=== PATIENT | male | born 1960 | race Caucasian/White ===

== ENCOUNTER 2020-11-02 14:58 | Emergency (ER) | payer OTHER, SELFPAY ==
--- NOTE | 2020-11-02 15:01 | ED.DENTAL ---
HPI - Dental/Oral General Chief complaint: Dental/Oral Stated complaint: tooth infection Time Seen by Provider: 11/02/20 15:01 Source: patient and RN notes reviewed History of Present Illness HPI Narrative: Patient is a 60-year-old male who presents the urgent care with complaints of right upper dental pain. Patient states it started on Tuesday and he is aware that he has had some fractured teeth to the area of the mouth. Patient does have a dentist that he can follow-up with. Denies of any fever, nausea, vomiting. Patient states that he has had increased swelling on the right jaw. Patient states that he took 2 doses of his daughter's antibiotic today as well as ibuprofen. Denies of any other acute complaints. No acute distress noted. Patient aware of the plan of care. Some parts of this dictation were generated by voice recognition software and may contain typographical and/or grammatical inaccuracies. Related Data Allergies Allergy/AdvReac Type Severity Reaction Status Date / Time No Known Allergies Allergy Verified 02/20/17 08:50 Review of Systems Review of Systems: CONSTITUTIONAL: Denies fever, chills, or sweats. EYES: Denies visual changes, redness, or discharge. ENT: Denies rhinorrhea, congestion, sore throat, or otalgia. Reports of upper right dental pain and swelling CARDIOVASCULAR: Denies chest pain, palpitations, or edema. RESPIRATORY: Denies cough or dyspnea. GASTROINTESTINAL: Denies abdominal pain, nausea, vomiting, or diarrhea. GENITOURINARY: Denies dysuria or hematuria. SKIN: Denies rash or itching. MUSCULOSKELETAL: Denies back pain, joint pain, or myalgia. NEUROLOGIC: Denies headache, numbness, or weakness. All other systems reviewed are negative, except as documented in HPI. PMFSH Social History Social History Smoking status: Former smoker Smoking end date: 03/07/16 Alcohol intake: never Comments At the time of my signature, I reviewed and agree with the nursing past medical, surgical, social, and family history. There is no relevant family history pertinent to the patient complaint. Exam Narrative: GENERAL: This is a well-nourished, well-developed patient, in no apparent distress. HEAD: normocephalic, atraumatic. EYES: PERRL. Sclera clear/white. Vision is grossly intact. EARS: External ears normal NOSE: External nose normal with no obvious nasal discharge, nares without redness, no rhinorrhea. THROAT: Mucous membranes moist, posterior pharynx clear. DENTAL: Moderate erythema and edema noted to the right upper quadrant, multiple missing dentition with carious lesions. Moderate right upper facial swelling. NECK: Neck supple, non-tender without lymphadenopathy, masses or thyromegaly. CARDIOVASCULAR: Regular rate and rhythm without murmurs, gallops, or rubs. RESPIRATORY: Clear to auscultation. Breath sounds equal bilaterally. No wheezes, rales, or rhonchi. SKIN: warm, intact with no suspicious lesions or rash, good texture and turgor. NEURO: awake, alert, and oriented to person, place and time. There were no obvious focal neurologic abnormalities. EXTREMITIES: No clubbing, cyanosis, or edema. Course Vital Signs Vital signs: Vital Signs Temperature 98.1 F 11/02/20 15:08 Pulse Rate 92 11/02/20 15:08 Respiratory Rate 16 11/02/20 15:08 Blood Pressure 166/79 H 11/02/20 15:08 Pulse Oximetry 96 11/02/20 15:08 Temperature 98.1 F 11/02/20 15:08 Pulse Rate 92 11/02/20 15:08 Respiratory Rate 16 11/02/20 15:08 Blood Pressure 166/79 H 11/02/20 15:08 Pulse Oximetry 96 11/02/20 15:08 Reviewed-patient is informed that they may have pre-hypertension or hypertension based on a blood pressure reading in the department. I recommend the patient call the primary care provider listed on their discharge instructions or a physician of their choice this week to arrange follow-up for further evaluation of possible pre-hypertension or hypertension. MDM - Dental/Oral MDM Narrative
[2020-11-02 15:08] VITALS: BP 166/79; PULSE 92; RESP 16; TEMP 36.7; O2SAT 96
== END 2020-11-02 15:30 | disposition home or self-care (01) ==
PROVIDERS: Emergency Provider Nurse Practitioner Family
DX: K04.7 Periapical abscess without sinus (principal)
CPT/HCPCS: 99213; G0463

== ENCOUNTER 2021-01-17 08:01 | Emergency (ER) | payer OTHER, SELFPAY ==
[2021-01-17 08:08] VITALS: BP 161/86; PULSE 125; RESP 21; TEMP 36.1; O2SAT 96
[2021-01-17] MEDS: EPINEPHrine HCL INJ 1 MG/ML AMPUL 0.3 MG IM (08:55)
[2021-01-17] MEDS: diphenhydrAMINE HCl CAP 25 MG CAPSULE PO (08:55)
[2021-01-17] MEDS: predniSONE 20 MG TABLET 60 MG PO (08:55)
--- NOTE | 2021-01-17 10:10 | ED.ALLEREA ---
HPI - Allergic Reaction General Chief complaint: Allergic Reaction Stated complaint: allergic reaction, lip swelling Time Seen by Provider: 01/17/21 08:20 Source: patient History of Present Illness HPI narrative: Patient presents with concern for allergic reaction. Is unsure what caused the symptoms he reports he had some gluten-free meal which was new to him. He developed symptoms yesterday had a rash took Benadryl initially doing okay this morning she had continued rash and felt like his lips were swollen so he came to the ER for evaluation. He denies any shortness of breath or wheezing denies prior reactions like this before. Reports mild epigastric pain that responded to Tums denies any nausea vomiting or diarrhea Related Data Allergies Allergy/AdvReac Type Severity Reaction Status Date / Time No Known Allergies Allergy Verified 01/17/21 08:15 Review of Systems Review of Systems: CONSTITUTIONAL: Denies fever, chills, or sweats. EYES: Denies visual changes, redness, or discharge. ENT: Denies rhinorrhea, congestion, sore throat, or otalgia. Reports lip swelling CARDIOVASCULAR: Denies chest pain, palpitations, or edema. RESPIRATORY: Denies cough or dyspnea. GASTROINTESTINAL: Denies nausea, vomiting, or diarrhea. GENITOURINARY: Denies dysuria or hematuria. SKIN: Reports rash and diffuse itching MUSCULOSKELETAL: Denies back pain, joint pain, or myalgia. NEUROLOGIC: Denies headache, numbness, dizziness, or weakness. PSYCHIATRIC: Denies anxiety or depression. All systems reviewed & are unremarkable except as noted in HPI and below PMFSH Past Medical History Medical History Patient denies significant medical history Social History Social History Smoking status: Former smoker Smoking end date: 03/07/16 Alcohol intake: never Exam Narrative: GENERAL: Well-appearing, well-nourished, and in no acute distress. HEAD: Normocephalic, atraumatic. EYES: PERRLA and EOMI. ENT: Nares clear, no rhinorrhea or epistaxis. Mucous membranes moist. Mild edema on the upper and lower lips no edema in the posterior pharynx NECK: Supple. No masses. No JVD CHEST: Clear to auscultation. No respiratory distress. No wheezes rales or rhonchi HEART: Regular rate and rhythm. No murmur heard. Normal peripheral pulses. ABDOMEN: Soft, nontender, nondistended, normal active bowel sounds. EXTREMITIES: Normal range of motion. No edema. SKIN: Diffuse urticaria predominantly on the torso but also noted on the extremities NEURO: No focal deficits. Alert and oriented x3. PSYCH: Normal mood and affect. Course Reevaluation(s) Reevaluation #1: Patient reports feeling much improved feels the swelling is going down he is no longer itchy Date: 01/17/21 Time: 10:12 Vital Signs Vital signs: Vital Signs Temperature 36.1 C L 01/17/21 08:08 Pulse Rate 125 H 01/17/21 08:08 Respiratory Rate 21 H 01/17/21 08:08 Blood Pressure 161/86 H 01/17/21 08:08 Pulse Oximetry 96 01/17/21 08:08 Temperature 36.1 C L 01/17/21 08:08 Pulse Rate 86 01/17/21 10:34 Respiratory Rate 14 01/17/21 10:34 Blood Pressure 136/77 01/17/21 10:34 Pulse Oximetry 96 01/17/21 10:34 MDM - Allergic Reaction MDM Narrative Medical decision making narrative: H&P as above, vs with mild tachycardia, pt looks clinically well, exam with diffuse urticaria and edema around the lips on repeat exam urticaria still present edema around the lips that resolved, labs/img considered. symptomatic relief available as needed, patient treated with EpiPen due to lip swelling Benadryl and steroids on reevaluation pt continues to looks clinically well, reported large improvement in his symptoms suspect allergic reaction, dns airway compromise severe sepsis SJS. plan to tx/monitor as op w/ pcm f/u findings/plan discussed with pt, pt agree/comfortable with plan, return precautions given
[2021-01-17 10:34] VITALS: BP 136/77; PULSE 86; RESP 14; O2SAT 96
== END 2021-01-17 10:35 | disposition home or self-care (01) ==
PROVIDERS: Emergency Provider Emergency Medicine
DX: T78.40XA Allergy, unspecified, initial encounter (principal); Z87.891 Personal history of nicotine dependence
CPT/HCPCS: 96372; 99283; A9270; J0171; J7512

== ENCOUNTER 2021-01-22 08:06 | Emergency (ER) | payer OTHER, SELFPAY ==
[2021-01-22 08:12] VITALS: BP 172/81; PULSE 72; RESP 16; TEMP 36.7; O2SAT 98
--- NOTE | 2021-01-22 08:15 | ECG_ITS ---
Measurements Intervals [place] Rate: 69 P: 61 NV: 186 QRS: 47 QRSD: 128 T: 54 QT: 395 QTc: 424 Interpretive Statements SINUS RHYTHM INCOMPLETE RIGHT BUNDLE BRANCH BLOCK BASELINE ARTIFACT- I, III, AVR, AVL, AVF, V3 BORDERLINE ECG Electronically Signed On 01-22-2021 8:54:40 NEWS EDITOR by Jose Jimenez D.O.
[2021-01-22] MEDS: MECLIZINE HCL 25 MG TABLET PO (08:23)
--- NOTE | 2021-01-22 08:37 | PC.NURSE ---
Attempted to irrigate left ear. Ear irrigated with 60 ml saline with small amount return of ear wax. Tolerated well.
[2021-01-22 09:03] VITALS: PULSE 59; RESP 11
--- NOTE | 2021-01-22 09:10 | PC.NURSE ---
Irrigated left ear again with large return of hard lumps of ear wax. Tolerated well.
[2021-01-22 09:15] VITALS: PULSE 54; RESP 10; O2SAT 96
--- NOTE | 2021-01-22 09:18 | ED.GENADULT ---
HPI - General Adult General Chief complaint: Dizziness Stated complaint: DIZZINESS Time Seen by Provider: 01/22/21 08:13 History of Present Illness HPI narrative: Patient is a 60-year-old male who presents to the ER with dizziness. Patient reports he woke up this morning and had spinning dizziness when he would turn his head or look up and look down. If he does not move his head the symptoms cease. He has had mild nausea. Endorses decreased hearing left ear. Recently had an allergic reaction to peanuts in the ER. He has not had any additional exposure to peanuts. No difficulty breathing or swallowing. No numbness or tingling to the arms or legs. Related Data Allergies Allergy/AdvReac Type Severity Reaction Status Date / Time No Known Allergies Allergy Verified 01/22/21 08:22 Review of Systems Review of Systems: All systems reviewed & are unremarkable except as noted in HPI and below Constitutional: Constitutional: Denies chills, Denies fever(s) and Denies weakness ENT: Reports dizziness, Denies nasal congestion and Denies sore throat Cardiovascular: Cardiovascular: Denies chest pain and Denies radiating jaw, neck or arm pain Gastrointestinal: Gastrointestinal: Denies abdominal pain, Reports nausea and Denies vomiting PMFSH Past Medical History Medical History Patient denies significant medical history Social History Social History Smoking status: Former smoker Smoking end date: 03/07/16 Alcohol intake: never Exam Narrative: GENERAL: Well-appearing, well-nourished, and in no acute distress. HEAD: Normocephalic, atraumatic. EYES: PERRL and EOMI. ENT: Mucous membranes moist. Left ear canal obstructed by cerumen, cerumen also present in right ear canal but not obstructing the TM which appears normal. Left TM normal as well after removal of cerumen. CHEST: Clear to auscultation. No respiratory distress. HEART: Regular rate and rhythm. Normal peripheral pulses. EXTREMITIES: Normal range of motion. No edema. SKIN: Warm, dry, no rash. NEURO: No focal deficits. Cranial nerves II through XII intact. Alert and oriented x3. Course Course Emergency Course: Patient feels much better after meclizine and ear irrigation. Discharge home. Vital Signs Vital signs: Vital Signs Temperature 98.0 F 01/22/21 08:12 Pulse Rate 72 01/22/21 08:12 Respiratory Rate 16 01/22/21 08:12 Blood Pressure 172/81 H 01/22/21 08:12 Pulse Oximetry 98 01/22/21 08:12 Temperature 98.0 F 01/22/21 08:12 Pulse Rate 72 01/22/21 08:12 Respiratory Rate 16 01/22/21 08:12 Blood Pressure 172/81 H 01/22/21 08:12 Pulse Oximetry 98 01/22/21 08:12 Procedures Ear Wax Removal Both Ears: Ear Wax Removal Date: 01/22/21 Ear Wax Removal Time: 09:31 Cerumenolytic Used: other (Saline) Results: Re-examined: cerumen removed completely TM Examination: TM(s) intact, normal appearance Ear Canal Exam: atraumatic Patient Tolerated Procedure: well Complications: no problems Technique: ear canal irrigated and ear canal curetted Medical Decision Making Vital Signs Vital Signs: Vital Signs Temperature 98.0 F 01/22/21 08:12 Pulse Rate 72 01/22/21 08:12 Respiratory Rate 16 01/22/21 08:12 Blood Pressure 172/81 H 01/22/21 08:12 Pulse Oximetry 98 01/22/21 08:12 Temperature 98.0 F 01/22/21 08:12 Pulse Rate 72 01/22/21 08:12 Respiratory Rate 16 01/22/21 08:12 Blood Pressure 172/81 H 01/22/21 08:12 Pulse Oximetry 98 01/22/21 08:12 Discharge Plan Discharge Clinical Impression: Impacted cerumen of left ear, Vertigo Patient Disposition: Home, Self-Care Condition: Stable Instructions: Carbamide Peroxide (Into the ear), Vertigo (ED) Additional Instructions: Return the ER if you have focal weakness in arm or leg, yo
[2021-01-22 09:44] VITALS: BP 156/80; PULSE 60; RESP 16; O2SAT 96
== END 2021-01-22 09:47 | disposition home or self-care (01) ==
PROVIDERS: Emergency Provider Emergency Medicine
DX: H61.22 Impacted cerumen, left ear (principal); R42 Dizziness and giddiness; Z87.891 Personal history of nicotine dependence
CPT/HCPCS: 69210; 93005; 99283; A9270

== ENCOUNTER 2021-07-29 08:40 | Emergency (ER) | payer OTHER, SELFPAY ==
[2021-07-29] VITALS (14 sets, daily range): BP systolic 124–151; BP diastolic 72–98; PULSE 98; RESP 16; TEMP 36.8–37; O2SAT 93–96
--- NOTE | ~2021-07-29 | XR_ITS ---
EXAMINATION: XR chest 1V portable DATE: 07/29/2021 10:43 INDICATION: Shortness of breath. TECHNIQUE: A single frontal view of the chest was obtained on 2 radiographs. COMPARISON: None. FINDINGS: The chest demonstrates clear lungs without pneumonia, pleural effusion, or pneumothorax. Th e heart size is normal. There are prominent paracardial fat pads. IMPRESSION: 1. No acute cardiopulmonary disease. Reviewed, dictated and finalized at location A.
--- NOTE | 2021-07-29 09:03 | PC.NURSE ---
pt unable to provide urine sample at this time. pt declining straight cath. will check back for urine sample.
[2021-07-29 09:06] LABS: Basophils Percent Auto 0.2 % (0.2-1.2); Hematocrit 43.3 % (42.0-52.0); Hemoglobin 14.5 g/dL (14.0-18.0); Immature Granulocyte Absolute 0.01 K/mm3 (0.00-0.031); Immature Granulocyte Percent A 0.2 % (0-0.5); Lymphocytes Absolute Auto 1.12 K/mm3 (0.9-3.2); Lymphocytes Percent Auto 19.8 % (18.3-44.2); Mean Corpuscular HGB Conc 33.5 g/dl (32-36); Mean Corpuscular Hemoglobin 32.4 pg (26-34); Mean Corpuscular Volume 96.9 fl (80-100); Mean Platelet Volume 11.2 fl (7.4-10.4); Monocytes Absolute Auto 0.9 K/mm3 (0.1-0.6); Monocytes Percent Auto 15.2 % (2.6-8.5); Neutrophils Absolute Auto 3.7 K/mm3 (1.3-6.7); Neutrophils Percent Auto 64.6 % (45.5-73.1); Platelet Count Result 159 k/mm3 (150-375); Red Blood Count 4.47 M/mm3 (4.6-6.20); Red Cell Distribution Width 13.2 % (11.5-14.5); White Blood Count 5.7 K/mm3 (4.5-10.0)
[2021-07-29 09:17] LABS: Alanine Aminotransferase 16 U/L (6-50); Alkaline Phosphatase 95 U/L (38-126); Anion Gap 9 mmol/L (8-16); Aspartate Amino Transferase 34 U/L (17-59); Bilirubin,Total 0.5 mg/dL (0.2-1.3); Blood Urea Nitrogen 10 mg/dL (9-20); Calcium 7.9 mg/dL (8.4-10.2); Carbon Dioxide 22 mmol/L (22-30); Chloride 103 mmol/L (98-107); Estimated CRCL calculation 82 ml/min; Estimated Glomerular Filt Rate > 60; Glucose 284 mg/dL (65-110); Potassium 3.2 mmol/L (3.4-5.0); Sodium 134 mmol/L (137-145)
[2021-07-29 09:43] LABS: Influenza A QL RT-PCR Negative (Negative); Influenza B QL RT-PCR Negative (Negative); SARS-CoV-2 RNA PCR Positive
--- NOTE | 2021-07-29 10:30 | PC.NURSE ---
pt still unable to provide urine sample at this time.
--- NOTE | 2021-07-29 10:54 | ED.FEVER ---
HPI - Fever General Chief Complaint: Fever Stated Complaint: fever, ST, diarrhea Time Seen by Provider: 07/29/21 08:53 Source: patient Mode of arrival: ambulatory Limitations: no limitations History of Present Illness HPI Narrative: 61-year-old otherwise healthy here with complaints of cold ,cough, fever for past 2 days. Patient states that he was taking care of his grandkids to have cold symptoms. He states he has occasional cough. He denies any chest pain, shortness of breath. Has occasional upper abdominal pain when coughing. He denies nausea, vomiting or diarrhea. He states he is not vaccinated against COVID. Related Data Allergies Allergy/AdvReac Type Severity Reaction Status Date / Time No Known Allergies Allergy Verified 07/29/21 08:49 Review of Systems Review of Systems: All systems reviewed & are unremarkable except as noted in HPI and below Constitutional: Constitutional: Reports no additional constitutional complaints Eyes: Eyes: Reports no additional eye complaints ENT: Reports nasal congestion Cardiovascular: Cardiovascular: Reports no additional cardiovascular complaints Respiratory: Respiratory: Reports cough Gastrointestinal: Gastrointestinal: Reports no additional gastrointestinal complaints Musculoskeletal: Musculoskeletal: Reports no additional musculoskeletal complaints Integumentary/Breasts: Skin/Breast: Reports system reviewed and no additional complaints, except as docu Neurologic: Reports system reviewed and no additional complaints, except as documented Psychiatric: Psychiatric: Reports no additional psychiatric complaints Endocrine: Endocrine: Reports no additional endocrine complaints PMFSH Past Medical History Medical History Patient denies significant medical history Social History Social History Smoking packs per day: 0.75 Smoking cigarettes per day: 15.0 Years smoked: 43 Smoking pack-years: 32.25 Smoking status: Former smoker Tobacco type: cigarettes Smoking end date: 03/07/16 Alcohol intake: never Spiritual care concerns: No Exam Narrative: GENERAL: Well-appearing, well-nourished, and in no acute distress. HEAD: Normocephalic, atraumatic. EYES: PERRLA and EOMI.. NECK: Supple. CHEST: Clear to auscultation. No respiratory distress. HEART: Regular rate and rhythm. No murmur heard. Normal peripheral pulses. ABDOMEN: Soft, nontender, nondistended, normal active bowel sounds. EXTREMITIES: Normal range of motion. No edema. SKIN: Warm, dry, no rash. NEURO: No focal deficits. Alert and oriented x3. PSYCH: Normal mood and affect. Course Course Emergency Course: Patient comfortably resting on the bed in no discomfort informed him about his lab work, chest x-ray. Informed patient about Paxlovid , pt understood the interaction and side affects and he wants to try it. Vital Signs Vital signs: Vital Signs Temperature 36.8 C 07/29/21 08:43 Pulse Rate 98 07/29/21 08:43 Respiratory Rate 16 07/29/21 08:43 Blood Pressure 151/98 H 07/29/21 08:43 Pulse Oximetry 96 07/29/21 08:43 Oxygen Delivery Room Air 07/29/21 08:43 Temperature 36.8 C 07/29/21 08:43 Pulse Rate 98 07/29/21 08:43 Respiratory Rate 16 07/29/21 08:43 Blood Pressure 135/72 07/29/21 10:45 Pulse Oximetry 94 07/29/21 10:45 Oxygen Delivery Room Air 07/29/21 08:43 MDM - Fever MDM Narrative Medical decision making narrative: Pneumonia, URI, COVID, viral syndrome Lab Data Result diagrams: 07/29/21 09:00 07/29/21 09:00 Labs: Lab Results 07/29/21 07/29/21 07/29/21 Range/Units 09:00 09:00 09:00 WBC 5.7 (4.5-10.0) K/mm3 RBC 4.47 L (4.6-6.20) M/mm3 Hgb 14.5 (14.0-18.0) g/dL Hct 43.3 (42.0-52.0) % MCV 96.9 (80-100) fl MCH 32.4 (26-34) pg MCHC 33.5 (32-36) g/dl RDW 13.2
== END 2021-07-29 11:41 | disposition home or self-care (01) ==
PROVIDERS: Emergency Provider Family Medicine
DX: U07.1 COVID-19 (principal); Z87.891 Personal history of nicotine dependence
CPT/HCPCS: 36415; 71045; 80053; 85025; 87502; 99283; C9803; U0003; U0005

== ENCOUNTER 2022-03-15 15:27 | Emergency (ER) | payer OTHER, SELFPAY ==
[2022-03-15 15:42] VITALS: BP 133/99; PULSE 69; RESP 16; TEMP 36.3; O2SAT 98
--- NOTE | 2022-03-15 15:56 | ED.URI ---
HPI - URI/Sore Throat General Chief Complaint: Ear Stated Complaint: Dizziness/ Swollen Neck Time Seen by Provider: 03/15/22 15:50 Source: patient Mode of arrival: ambulatory Limitations: no limitations History of Present Illness HPI Narrative: Mr. Wheeler is a 61-year-old male patient presenting to the clinic today with complaints dizziness and lymph node swelling over the right cervical lymph node. He reports lymph node swelling has been going on for 3 days however rule the last 1-2 days he has developed some dizziness when bending forward. He denies any fever or chills. He denies any chest pain short or shortness of breath. He denies any sore throat or URI symptoms MD elicited complaint: sore throat and nasal congestion Related Data Allergies Allergy/AdvReac Type Severity Reaction Status Date / Time No Known Allergies Allergy Verified 03/15/22 15:45 Review of Systems Review of Systems: Pertinent positives per HPI. Patient denies any fever, chills, rash, headache, visual changes, cough, shortness of breath, chest pain, palpitations, nausea, vomiting, diarrhea, constipation, abdominal pain, or any urinary issues. PMFSH Past Medical History Medical History Patient denies significant medical history Social History Social History Smoking packs per day: 0.75 Smoking cigarettes per day: 15.0 Years smoked: 43 Smoking pack-years: 32.25 Smoking status: Former smoker Tobacco type: cigarettes Smoking end date: 03/07/16 Alcohol intake: never Spiritual care concerns: No Comments At the time of my signature, I reviewed and agree with the nursing past medical, surgical, social, and family history. There is no relevant family history pertinent to the patient complaint. Exam Narrative: General: Well-developed, well nourished, in no apparent distress Head: Normocephalic, atraumatic Eyes: Pupils equally round and reactive to light bilaterally, EOM intact, sclera and conjunctive clear, no discharge, lids normal Ears: TMs intact , bulging, congested, ear canals clear, no drainage, grossly hearing normal. Nose: Nares patent, no discharge, no inflammation, no sinus tenderness. Mouth: Oral pharynx without lesions or masses, good dentition, MMM. oropharynx Neck: Supple, trachea midline,enlargement of right anterior cervical nodes, no thyroid masses or goiter palpable. Cardio: Regular rate and rhythm, s1 and s2 normal, no murmur appreciated. Resp: Clear to auscultation bilaterally, no rhonchi, rales, wheezing or rubs Course Course Emergency Course: Portions of this record may have been created with voice recognition software. Level of Care: Express Care Visit Vital Signs Vital signs: Vital Signs Temperature 36.3 C L 03/15/22 15:42 Pulse Rate 69 03/15/22 15:42 Respiratory Rate 16 03/15/22 15:42 Blood Pressure 133/99 H 03/15/22 15:42 Pulse Oximetry 98 03/15/22 15:42 Oxygen Delivery Room Air 03/15/22 15:42 Temperature 36.3 C L 03/15/22 15:42 Pulse Rate 69 03/15/22 15:42 Respiratory Rate 16 03/15/22 15:42 Blood Pressure 133/99 H 03/15/22 15:42 Pulse Oximetry 98 03/15/22 15:42 Oxygen Delivery Room Air 03/15/22 15:42 Vital signs reviewed MDM - URI/Sore Throat MDM Narrative Medical decision making narrative: at the time of visit patient is resting comfortably on the exam table. I suspect patient has serous otitis media with eustachian tube dysfunction as well as cervical lymphadenopathy. Supportive measures were discussed with the patient he voiced understanding of discharge instructions and agrees to treatment plan. Prescription for prednisone was sent to the pharmacy to help with eustachian tube dysfunction/serous otitis Differential Diagnosis Differential diagnosis: Likely upper respiratory infection, otitis media, sinusitis, viral infection, bronchitis, infl
== END 2022-03-15 16:22 | disposition home or self-care (01) ==
PROVIDERS: Emergency Provider Nurse Practitioner Family
DX: R42 Dizziness and giddiness (principal); H65.03 Acute serous otitis media, bilateral; R59.0 Localized enlarged lymph nodes; Z87.891 Personal history of nicotine dependence
CPT/HCPCS: 87081; 87880; 99213; G0463

== ENCOUNTER 2023-12-04 14:01 | Emergency (ER) | payer OTHER, SELFPAY ==
[2023-12-04 14:06] VITALS: BP 166/74; PULSE 86; RESP 20; TEMP 36.6; O2SAT 96
--- NOTE | 2023-12-04 14:22 | ED.GENADULT ---
HPI - General Adult General Chief complaint: Dental/Oral Stated complaint: Dental Pain History of Present Illness HPI narrative: Patient presents for evaluation of right upper dental pain. Symptom onset 3 days ago. He states he has several dental fractures in the affected area which are chronic. No fever, chills, nausea, vomiting. He states his dentist is planning on extracting several teeth but he needs the infection treated first. No fever, chills, nausea, vomiting. He is not diabetic. He does not smoke. He is taking ibuprofen for symptoms which seems to help. Related Data Allergies Allergy/AdvReac Type Severity Reaction Status Date / Time No Known Allergies Allergy Verified 12/04/23 14:03 Review of Systems Review of Systems: CONSTITUTIONAL: Denies fever, chills, or sweats. EYES: Denies visual changes, redness, or discharge. ENT: Reports right upper dental pain with facial swelling. Denies rhinorrhea, congestion, sore throat, or otalgia. CARDIOVASCULAR: Denies chest pain, palpitations, or edema. RESPIRATORY: Denies cough or dyspnea. GASTROINTESTINAL: Denies abdominal pain, nausea, vomiting, or diarrhea. GENITOURINARY: Denies dysuria or hematuria. SKIN: Denies rash or itching. MUSCULOSKELETAL: Denies back pain, joint pain, or myalgia. NEUROLOGIC: Denies headache, numbness, dizziness, or weakness. PSYCHIATRIC: Denies anxiety or depression. PMFSH Past Medical History Medical History Patient denies significant medical history Surgical History Surgical History History of cholecystectomy Family History Family History Mother Family history non-contributory Social History Social History Smoking packs per day: 0.75 Smoking cigarettes per day: 15.0 Years smoked: 43 Smoking pack-years: 32.25 Smoking status: Former smoker Tobacco type: cigarettes Smoking end date: 03/07/16 Alcohol intake: never Living arrangements: with family Spiritual care concerns: No Exam Narrative: GENERAL: Well-appearing, well-nourished, and in no acute distress. HEAD: Normocephalic, atraumatic. EYES: PERRLA and EOMI. ENT: there are several fractured teeth and several absent teeth. There is right maxillary facial swelling. There is no palpable area of fluctuance in the gumline. Nares clear, no rhinorrhea or epistaxis. Mucous membranes moist. Oropharynx without tonsillar hypertrophy exudate or other lesions. Bilateral TMs pearly subramanian nonbulging. NECK: Supple. No adenopathy or masses. No carotid bruits or JVD CHEST: Clear to auscultation. No respiratory distress. No wheezes rales or rhonchi HEART: Regular rate and rhythm. No murmur heard. Normal peripheral pulses. ABDOMEN: Soft, nontender, nondistended, normal active bowel sounds. EXTREMITIES: Normal range of motion. No edema. SKIN: Warm, dry, no rash. NEURO: No focal deficits. Alert and oriented x3. PSYCH: Normal mood and affect. Course Course Emergency Course: This is a 63-year-old male who presented for evaluation of right upper dental pain. There is No palpable drainable fluid collection on exam. Will treat with penicillin. Ibuprofen for pain. Follow-up with dentist. Go to the ER for worsening symptoms. Patient in agreement with plan of care. Level of Care: Express Care Visit Vital Signs Vital signs: Vital Signs Temperature 36.6 C 12/04/23 14:06 Pulse Rate 86 12/04/23 14:06 Respiratory Rate 20 12/04/23 14:06 Blood Pressure 166/74 H 12/04/23 14:06 Pulse Oximetry 96 12/04/23 14:06 Oxygen Delivery Room Air 12/04/23 14:06 Temperature 36.6 C 12/04/23 14:06 Pulse Rate 86 12/04/23 14:06 Respiratory Rate 20 12/04/23 14:06 Blood Pressure 166/74 H 12/04/23 14:
== END 2023-12-04 14:25 | disposition home or self-care (01) ==
PROVIDERS: Emergency Provider Nurse Practitioner
DX: S02.5XXA Fracture of tooth (traumatic), initial encounter for closed fracture (principal); X58.XXXA Exposure to other specified factors, initial encounter; K04.7 Periapical abscess without sinus; Z87.891 Personal history of nicotine dependence
CPT/HCPCS: 99213; G0463

== ENCOUNTER 2025-01-19 08:08 | Emergency (ER) | payer MEDICARE, SELFPAY ==
[2025-01-19 08:18] VITALS: BP 173/90; PULSE 74; RESP 16; TEMP 36.9; O2SAT 97
--- NOTE | 2025-01-19 08:23 | ED_ITS ---
HPI - Dental/Oral General Chief complaint: Dental/Oral Stated complaint: tooth pain Patient presents to the office with complaints of swelling and pain to right upper cheek. Patient noted that while eating last night he feels like he broke off a piece of his tooth. Patient does have a dentist that he sees on a regular basis and plans to call them on Tuesday. Patient does also note an upcoming visit with primary care physician. Denies significant pain to the area but knows he should be on antibiotics due to the swelling. Denies fever, chills, body aches, headache, dizziness, ear pain, or drainage from the area. Related Data Allergies Allergy/AdvReac Type Severity Reaction Status Date / Time No Known Allergies Allergy Verified 01/19/25 08:23 Review of Systems Constitutional: Constitutional: Reports as per HPI, Denies chills, Denies fatigue, Denies fever(s) and Denies weakness Eyes: Eyes: Reports no additional eye complaints ENT: Reports as per HPI Comments: dental pain Cardiovascular: Cardiovascular: Reports no additional cardiovascular complaints Respiratory: Respiratory: Reports no additional respiratory complaints Gastrointestinal: Gastrointestinal: Reports no additional gastrointestinal complaints Genitourinary: Genitourinary: Reports no additional male genitourinary complaints Musculoskeletal: Musculoskeletal: Reports no additional musculoskeletal complaints Integumentary/Breasts: Skin/Breast: Reports as per HPI, Reports erythema (right cheek) and Denies rash Neurologic: Reports as per HPI, Denies vertigo, Denies dizziness, Denies syncope, Denies headache(s) and Denies weakness Psychiatric: Psychiatric: Reports no additional psychiatric complaints Endocrine: Endocrine: Reports no additional endocrine complaints Hematologic/Lymphatic: Hematologic/Lymphatic: Reports no additional hematologic/lymphatic complaints Allergic/Immunologic: Allergic/Immunologic: Reports no additional allergic/immunologic complaints [facility] Past Medical History Medical History Patient denies significant medical history Surgical History Surgical History History of cholecystectomy Family History Family History Mother Family history non-contributory Social History Social History (Reviewed 12/04/23 @ 14:26 by Edison Grant, BIOLOGICAL SCIENCE TECHNICIAN FISH, RADIOLOGY SPECIAL PROCEDURE TECH) Smoking packs per day: 0.75 Smoking cigarettes per day: 15.0 Years smoked: 43 Smoking pack-years: 32.25 Smoking status: Former smoker Tobacco type: cigarettes Smoking end date: 03/07/16 Alcohol intake: never Living arrangements: with family Spiritual care concerns: No Exam Const: General: healthy appearing and no acute distress Nutritional Appearance: well nourished Orientation/consciousness: patient oriented x3 Limitations: no limitations HENMT: Head: normal to inspection Ears: external ears normal and TM's normal bilaterally Face/Nose/Sinus: Normal external nose present Face and sinus: sinus tenderness (right maxillary ) Mouth: Yes moist mucous membranes Teeth and gingiva: abnormal tooth and associated gingiva (right upper- Gingival swelling and erythema.) Throat: posterior oropharynx normal Other: significant dental caries noted diffusely. Neck: Neck: normal visual inspection and no lymphadenopathy Resp: Effort & Inspection: normal respiratory effort Auscultation: clear to auscultation bilaterally Cardio: Rate: regular rate Rhythm: regular rhythm Skin: General skin exam: normal color Rashes: no rashes Wounds: no wounds Neuro: General: patient oriented x3 Speech: normal speech Gait exam (Neuro): Normal gait present Psych: Mental Status: mental status grossly normal Affect: normal affect Attitude: cooperative Course Course Level of Care: Express Care Visit Vital Signs Vital signs: Vital Signs Temperature 98.5 F 01/19/25 08:18 Pulse Rate 74 01/19/25 08:18 Respiratory Rate 16 01/19/25 08:18 Blood Pressure 173/90 H 01/19/25 08:18 Pulse Oximetry 97 01/19/25 08:18 Oxygen Delivery Room Air 01/19/25 08:18 Temperature 98.5 F 01/19/25 08:18 Pulse Rate 74 01/19/25 08:18 Respiratory Rate 16 01/19/25 08:18 Blood Pressure 173/90 H 01/19/25 08:18 Pulse Oximetry 97 01/19/25 08:18 Oxygen Delivery Room Air 01/19/25 08:18 MDM - Dental/Oral MDM Narrative Medical decision making narrative: The patient was evaluated by myself in the express care. History is obtained from patient who is an independent historian and physical exam was performed. Available medical records were reviewed at this time. Exam findings show no acute concerns or changes; patient is non-toxic appearing and is in no distress. Patient is appropriate for outpatient treatment and follow-up. I have evaluated and discussed social determinants of health with the patient that could potentially impact subsequent diagnosis and treatment plans. Differential diagnosis and treatment plan were discussed with the patient. Patient agrees with discussion and after shared medical decision making agrees with plan of care. All questions were answered to the patient's satisfaction. noted patient with elevated in office today patient denies any headache, dizziness, chest pain, shortness of breath. Patient does note he is scheduled within the next month to follow up with primary care physician. Differential Diagnosis Differential diagnosis: Likely gingival abscess, dental caries, toothache, dental abscess, fracture of tooth and aphthous ulcer Medical Records Attestation: I reviewed the patient's medical records. Discharge Plan Discharge Clinical Impression: Dental caries Patient Disposition: Home Condition: Stable Instructions: Antibiotic Form, Dental Abscess (ED), Toothache (ED) Additional Instructions: Please schedule a follow up visit with your personal physician for further evaluation and treatment within 3-5 days. Including recheck and discussion of your blood pressure. If your symptoms persist, change or worsen significantly before you can contact your personal physician then please, without delay, go to the emergency department for further evaluation. Your blood pressure was elevated above 120/80 today at Urgent Care. This puts you above the threshold for follow up visit with a primary care provider. High blood pressure does not usually cause any symptoms, however it may lead to kidney failure, stroke, heart disease just to name a few if untreated . Many people are anxious when seeing a provider or nurse. As a result, you are not diagnosed with hypertension at this time unless your blood pressure is persistently high at two office visits at least one week apart; therefore it is very important that you follow up with a primary care doctor for further evaluation. Finish the entire course of antibiotics & use the mouthwash. After every time you eat be sure to use salt water gargles. Apply ice to face to help with pain. Dental problems can lead to other problems, so this is important to follow up with a dental provider. To solve the problem, You need to follow up with a dental provider, a list has been given to you. Please follow up with your dentist as soon as possible. Take Ibuprofen as prescribed for pain and to decrease swelling- take this with food Follow up with a Primary Care Provider (PCP) about medical needs. A PCP can help keep you healthy by preventive medicine and screening. Return to Urgent care or go to the ER for New or worsening symptoms. Patient Language: Portuguese Prescriptions: New amoxicillin 500 mg capsule 500 mg PO TID Qty: 31 0RF Rx Instructions: Start by taking 2 tablets as a loading dose and take 1 tablet 3 times a day Follow-up/Referrals: PHYSICIAN,MEDICAL SONOGRAPHER [Primary Care Provider, Internal Medicine] Time of Disposition: 08:25
== END 2025-01-19 08:29 | disposition home or self-care (01) ==
PROVIDERS: Emergency Provider Nurse Practitioner Family
DX: K02.9 Dental caries, unspecified (principal); Z87.891 Personal history of nicotine dependence
CPT/HCPCS: 99213; G0463